=== PATIENT | male | born 1995 | race Caucasian/White ===

== ENCOUNTER 2019-12-07 09:35 | Emergency (ER) | payer OTHER, SELFPAY ==
[2019-12-07 09:40] VITALS: BP 133/95; PULSE 122; RESP 16; TEMP 37.1; O2SAT 99
--- NOTE | 2019-12-07 09:55 | ED.DENTAL ---
HPI - Dental/Oral General Chief complaint: Dental/Oral Stated complaint: jaw pain Source: patient and RN notes reviewed Limitations: no limitations History of Present Illness HPI Narrative: The patient, a non-smoker/occasional drinker, presents with jaw swelling. Patient states he was seen by dentist last week and had noncontributory imaging. He was told he has mild gingivitis, and has had lower left wisdom tooth pain now associated with swelling. Symptoms are mild, unrelieved with OTC pain meds like Tylenol. No fever, hoarseness, trismus, TMJ discomfort; patient scheduled to see dentist tomorrow and advised not to miss appointment. Related Data Allergies Allergy/AdvReac Type Severity Reaction Status Date / Time No Known Allergies Allergy Unverified 11/24/10 12:24 Review of Systems Review of Systems: Narrative: The patient has been informed that they may have pre-hypertension or Hypertension based on a BP reading in the department. I recommend that the patient call the primary care provider listed on their discharge instructions or a physician of their choice this week to arrange follow up for further evaluation of possible pre-hypertension or Hypertension General/Constitutional: No weight loss,fever Eyes: N0: Redness,discharge Ears/Nose/Throat: No: Epistaxis,ear discharge Respiratory: Denies: Hemoptysis Gastrointestinal: No Vomiting, Bleeding-rectal Skin: No Lumps, eruption Neurologic: No Focal Weakness,Sz Hematologic: Denies: Petechiae/Purpura Psychiatric: No: Suicida ideationl All Other Systems: Reviewed and Negative [facility] Family History Family History (Updated 09/25/17 @ 15:15 by DOCTOR UNKNOWN) Father Diabetes mellitus Hypertension Family history of seizure disorder Mother Diabetes mellitus Depression Hypertension Grandparent Hypertension Family history of malignant neoplasm Social History Social History Smoking status: Never smoker Alcohol intake: never Comments At time of signature, agree with nursing past medical, surgical, social and family history. There is no relevant family history pertinent to the presenting complaint Exam Narrative: Exam Narrative: General Appearance: Well appearing, Conjunctiva clear Mouth/Throat: Normal appearing (with mild left lower jaw swelling), Normal lips, MM moist, Uvula midline (scattered dental caries/ fillings,) Neck: Supple, No adenopathy Respiratory: Airway patent, No respiratory distress, Clear to auscultation Cardiovascular: RRR Musculoskeletal: Full ROM, Non tender, Normal strength Skin: Warm, Dry, Normal color Neurological: A&O x3, , Normal affect Course Vital Signs Vital signs: Vital Signs Temperature 98.8 F 12/07/19 09:40 Pulse Rate 122 H 12/07/19 09:40 Respiratory Rate 16 12/07/19 09:40 Blood Pressure 133/95 H 12/07/19 09:40 Pulse Oximetry 99 12/07/19 09:40 Temperature 98.8 F 12/07/19 09:40 Pulse Rate 122 H 12/07/19 09:40 Respiratory Rate 16 12/07/19 09:40 Blood Pressure 133/95 H 12/07/19 09:40 Pulse Oximetry 99 12/07/19 09:40 Discharge Plan Discharge Clinical Impression: Toothache Patient Disposition: Home, Self-Care Condition: Stable Instructions: Antibiotic Form, Gingivitis (ED) Prescriptions: New acetaminophen-codeine 300-30 mg tablet 1 tablet PO HS PRN (Reason: pain) Qty: 10 RF: 0 tramadol 50 mg tablet 50 mg PO TID PRN (Reason: pain) Qty: 20 RF: 0 amoxicillin-pot clavulanate [Augmentin] 500-125 mg tablet 1 tablet PO Q12H Qty: 14 RF: 0 Interventions: Discharge Disposition Last Done: 12/07/19 10:07 Follow-up/Referrals: PHYSICIAN,[employer] [Primary Care Provider] - Discharge Date/Time: 12/07/19 10:08
== END 2019-12-07 10:08 | disposition home or self-care (01) ==
PROVIDERS: Emergency Provider Emergency Medicine
DX: K08.89 Other specified disorders of teeth and supporting structures (principal)
CPT/HCPCS: 99203; G0463